=== PATIENT | female | born 1965 | race Hispanic/Latino ===

== ENCOUNTER 2017-06-25 14:32 | Emergency (ER) | payer OTHER ==
[2017-06-25 14:32] VITALS: BMI 32.5
[2017-06-25 14:43] VITALS: BP 128/79; PULSE 67; RESP 18; TEMP 98.3; O2SAT 98
--- NOTE | 2017-06-25 15:52 | ED PDOC ---
Arrival/HPI - General Chief Complaint: Back Pain Time Seen by Provider: 06/25/17 14:52 Historian: Patient - History of Present Illness Narrative History of Present Illness (Text): 06/25/17 16:26 A 52 year old female whose past medical history includes low back surgery with screws in 1996, right foot surgery in December 2016 and a hysterectomy, presents to the emergency department after a mechanical fall at work. She states that she slipped on a wet floor and twisted her right ankle and her right lower back. She denies head injury, headache, LOC, neck pain, fever, chills, shortness of breath, chest pain, nausea, vomiting, diarrhea, any other injuries or complaints. PMD: Dr. Sims Time/Duration: Prior to Arrival Symptom Onset: Sudden Symptom Course: Unchanged Activities at Onset: Rest, Light Context: Work Past Medical History - Provider Review Nursing Documentation Reviewed: Yes - Infectious Disease Hx of Infectious Diseases: None - Tetanus Immunization Tetanus Immunization: Unknown - Cardiac Hx Cardiac Disorders: No Hx Cardiac Arrhythmia: Yes Hx Pacemaker: No - Pulmonary Hx Respiratory Disorders: No - Neurological Hx Neurological Disorder: No Hx Paralysis: No - HEENT Hx HEENT Disorder: No - Renal Hx Renal Disorder: No - Endocrine/Metabolic Hx Endocrine Disorders: No - Hematological/Oncological Hx Blood Disorders: Yes Hx Anemia: Yes Hx Blood Transfusions: Yes (2007) Hx Blood Transfusion Reaction: No Hx Bruising: Yes Other/Comment: MRSA - Integumentary Hx Dermatological Disorder: No Other/Comment: Abcess Right thigh, face and buttocks - Musculoskeletal/Rheumatological Hx Musculoskeletal Disorders: Yes Hx Arthritis: Yes Hx Back Pain: Yes Hx Falls: No Hx Osteoarthritis: Yes - Gastrointestinal Hx Gastrointestinal Disorders: Yes Hx Gall Bladder Disease: Yes Hx Gastroesophageal Reflux: Yes (GERD) Other/Comment: ischemic bowel after hernia repair, needing bowel resection - Genitourinary/Gynecological Hx Genitourinary Disorders: No Other/Comment: HYSTERECTOMY,LIPOSUCTION,TUMMY TUCK - Psychiatric Hx Anxiety: Yes Hx Depression: Yes Hx Substance Use: No Other/Comment: ADHD - Surgical History Hx Appendectomy: Yes Hx Cholecystectomy: Yes Hx Gastric Bypass Surgery: Yes Hx Hysterectomy: Yes Hx Orthopedic Surgery: Yes (aspiration of fluid right knee) Hx Tonsillectomy: Yes Other/Comment: GASTRIC BYPASS 2002 .INCISIONAL HERNIA W/ BOWEL RESECTION / LAMINECTOMY L3 L4 - Anesthesia Hx Anesthesia: Yes Hx Anesthesia Reactions: No Hx Malignant Hyperthermia: No - Suicidal Assessment Feels Threatened In Home Enviroment: No Family/Social History - Physician Review Nursing Documentation Reviewed: Yes Family/Social History: No Known Family HX Smoking Status: Never Smoked Hx Alcohol Use: No Hx Substance Use: No Hx Substance Use Treatment: No Allergies/Home Meds Allergies/Adverse Reactions: Allergies aspirin Adverse Reaction (Verified 06/25/17 14:45) PAIN ZINC OINTMENT Allergy (Uncoded 06/25/17 14:45) RASH Home Medications: Home Meds Medication Instructions Recorded Confirmed ALPRAZolam [Xanax] 0.5 mg PO QID 12/24/15 01/16/17 Lamotrigine [Lamictal] 175 mg PO BID 12/24/15 01/16/17 Methylphenidate [Ritalin] 10 mg PO BID 12/24/15 01/16/17 Multivitamin [Multivitamins] 1 cap PO DAILY 12/24/15 01/16/17 PARoxetine CR [Paxil CR] 37.5 mg PO DAILY 12/24/15 01/16/17 Pantoprazole Sodium [Protonix] 40 mg PO DAILY 12/24/15 01/16/17 Cephalexin [cephalexin] 500 mg PO TID 01/16/17 01/16/17 oxyCODONE/Acetaminophen [Percocet 1 tab PO Q4 PRN 01/16/17 01/16/17 5/325 mg Tab] Review of Systems - Physician Review All systems were reviewed & negative as marked: Yes - Review of Systems Constitutional: absent: Fevers, Night Sweats Respiratory: absent: SOB, Cough Cardiovascular: absent: Chest Pain Gastrointestinal: absent: Abdominal Pain, Diarrhea, Nausea, Vomiting Musculoskeletal: Back Pain (right lower back pain), Other (right ankle) Neurological: absent: Headache, Dizziness Physical Exam Vital Signs Temp Pulse Resp BP Pulse Ox 06/25/17 14:40 98.3 F 67 18 128/79 98 Temperature: Afebrile Blood Pressure: Normal Pulse: Regular Respiratory Rate: Normal Appearance: Positive for: Well-Appearing, Non-Toxic, Comfortable Pain Distress: None Mental Status: Positive for: Alert and Oriented X 3 - Systems Exam Head: Present: Atraumatic, Normocephalic Pupils: Present: PERRL Extroacular Muscles: Present: EOMI Conjunctiva: Present: Normal Mouth: Present: Moist Mucous Membranes Neck: Present: Normal Range of Motion Respiratory/Chest: Present: Clear to Auscultation, Good Air Exchange. No: Respiratory Distress, Accessory Muscle Use Cardiovascular: Present: Regular Rate and Rhythm, Normal S1, S2. No: Murmurs Abdomen: Present: Normal Bowel Sounds. No: Tenderness, Distention, Peritoneal Signs Back: Present: Other (point tenderness to right para lumbar area.). No: CVA Tenderness, Midline Tenderness Upper Extremity: Present: Normal Inspection. No: Cyanosis, Edema Lower Extremity: Present: Normal Inspection, NORMAL PULSES, Neurovascularly Intact, Capillary Refill < 2 s, Other (foot and ankle normal ). No: Edema, Tenderness, Swelling, Erythema, Deformity, Temperature Abnormalties Neurological: Present: GCS=15, CN II-XII Intact, Speech Normal Skin: Present: Warm, Dry, Normal Color. No: Rashes Psychiatric: Present: Alert, Oriented x 3, Normal Insight, Normal Concentration Medical Decision Making ED Course and Treatment: 06/25/17 16:36 Impression: A 52 year old female with right lower pack pain and right ankle pain after a mechanical fall at work. She states that she slipped on a wet floor. Plan: -- Right Ankle/ LS Spine X-Ray -- Reassess and disposition XR right ankle: no fracture, no dislocation, as read by PA XR lumbar spine: +spondylolisthesis of L5 over S1, +screws noted in L5 & S1 no dislocation, as read by PA Patient advised that official radiology read of XR is still pending and will call the patient if there is any discrepancy within 24 hours. X-ray results discussed with the patient in great detail. Patient advised to rest, ice, avoid any heavy lifting, instructed to take Tylenol and Flexeril description as directed for pain. Otherwise patient was instructed to follow up with primary care physician or workman's comp in 1-2 days without fail. 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 Return to the emergency room at any time for any new or worsening symptoms. Patient states she fully agrees with and understands discharge instructions. States that she agrees with the plan and disposition. Verbalized and repeated discharge instructions and plan. I have given the patient opportunity to ask any additional questions. - RAD Interpretation Radiology Orders: 06/25/17 15:01 ANKLE RIGHT 3 VIEWS ROUTINE [RAD] Stat LS SPINE WITH OBL > 18 YRS OLD [RAD] Stat - PA / [employer]ATION DEVELOPER / Resident Statement MD/DO has reviewed & agrees with the documentation as recorded. - Scribe Statement The provider has reviewed the documentation as recorded by the Scribe Domonique Burks Provider Scribe Attestation: All medical record entries made by the Scribe were at my direction and personally dictated by me. I have reviewed the chart and agree that the record accurately reflects my personal performance of the history, physical exam, medical decision making, and the department course for this patient. I have also personally directed, reviewed, and agree with the discharge instructions and disposition. Disposition/Present on Arrival - Present on Arrival Any Indicators Present on Arrival: No History of DVT/PE: No History of Uncontrolled Diabetes: No Urinary Catheter: No History of Decub. Ulcer: No History Surgical Site Infection Following: None - Disposition Have Diagnosis and Disposition been Completed?: Yes Diagnosis: Back strain, Ankle sprain Disposition: HOME/ ROUTINE Disposition Time: 15:49 Patient Plan: Discharge Condition: STABLE Discharge Instructions (ExitCare): Ankle Sprain (ED), Acute Low Back Pain (ED) Print Language: SYRIAC Additional Instructions: Thank you for letting us take care of you today. You were treated for back strain, ankle sprain. The emergency medical care you received today was directed at your acute symptoms. If you were prescribed any medication, please fill it and take as directed. It may take several days for your symptoms to resolve. Return to the Emergency Department if your symptoms worsen, do not improve, or if you have any other problems. Please contact your doctor in 2 days for re-evaluation and follow up / or call one of the physicians/clinics you have been referred to that are listed on the Patient Visit Information form that is included in your discharge packet. Bring any paperwork you were given at discharge with you along with any medications you are taking to your follow up visit. Our treatment cannot replace ongoing medical care by a primary care provider (PCP) outside of the emergency department. Thank you for allowing the [facility] team to be part of your care today. Prescriptions: Cyclobenzaprine [Cyclobenzaprine HCl] 10 mg PO TID PRN #15 tab PRN Reason: Muscle Spasm Referrals: Milvia Sims MD [Primary Care Provider] - Follow up with primary Forms: [employer] (D[place]), WORK NOTE
--- NOTE | 2017-06-25 17:26 | RAD ---
PROCEDURE: Right Ankle Radiographs. HISTORY: pain COMPARISON: None FINDINGS: BONES: Normal. No fracture. JOINTS: Normal. No osteoarthritis. Ankle mortise maintained. Talar dome intact SOFT TISSUES: Normal. OTHER FINDINGS: None. IMPRESSION: Normal right ankle radiographs.
--- NOTE | 2017-06-25 17:26 | RAD ---
PROCEDURE: Radiographs of the Lumbar Spine. HISTORY: pain COMPARISON: No prior. FINDINGS: BONES: Pedicle screws and rods are seen at L5-S1. There is moderate anterior subluxation of L5. The remainder the spine is unremarkable DISC SPACES: Unremarkable. OTHER FINDINGS: None. IMPRESSION: Pedicle screws and rods are seen at L5-S1. There is moderate anterior subluxation of L5. The remainder the spine is unremarkable
== END 2017-06-25 15:57 | disposition home or self-care (01) ==
LOC: ED 14:32
DX: S39.012A Strain of muscle, fascia and tendon of lower back, initial encounter (principal); S93.401A Sprain of unspecified ligament of right ankle, initial encounter; W01.0XXA Fall on same level from slipping, tripping and stumbling without subsequent striking against object, initial encounter; Y93.89 Activity, other specified; Y92.238 Other place in hospital as the place of occurrence of the external cause; Y99.0 Civilian activity done for income or pay